=== PATIENT | female | born 1965 | race Caucasian/White ===

== ENCOUNTER 2018-02-11 11:47 | Outpatient (REF) | payer MEDICAID, SELFPAY ==
[2018-02-11 21:36] LABS: ALT 34 U/L (12-78); Anion Gap 9.9 mmol/L (3-11); BUN 14 mg/dL (7-18); CO2 31.1 mmol/L (21.0-32.0); CREATININE 0.77 mg/dL (0.55-1.02); Chloride 102 mmol/L (98-107); Cholesterol 127 mg/dL (50-200); Glucose 89 mg/dL (70-100); HDL Cholesterol 39 mg/dL (40-60); LDL CHOLESTEROL 78 mg/dL (<100); Potassium 3.9 mmol/L (3.5-5.1); Sodium 143 mmol/L (136-145); Triglyceride 81 mg/dL (30-150)
[2018-02-11 21:47] LABS: Hemoglobin A1C 6.1 % (4.5-6.2)
== END 2018-02-11 12:07 ==
LOC: NCHCN 11:47
PROVIDERS: PCP Family Medicine; Visit Provider Family Medicine
DX: I10 Essential (primary) hypertension (principal); R73.02 Impaired glucose tolerance (oral); E78.5 Hyperlipidemia, unspecified
CPT/HCPCS: 80048; 80061; 83721; 83036; 84460

== ENCOUNTER 2018-08-04 19:39 | Outpatient (REF) | payer MEDICAID, SELFPAY ==
[2018-08-04 22:10] LABS: TSH (W/Ref FT4) 2.27 uIU/mL (0.358-3.74)
[2018-08-04 22:17] LABS: Hemoglobin A1C 6.4 % (4.5-6.2)
== END 2018-08-04 19:59 ==
LOC: NCHCN 19:39
PROVIDERS: PCP Family Medicine; Visit Provider Family Medicine
DX: R73.02 Impaired glucose tolerance (oral) (principal); N64.52 Nipple discharge
CPT/HCPCS: 83036; 84146; 84443

== ENCOUNTER 2019-03-04 21:09 | Outpatient (REF) | payer MEDICAID, SELFPAY ==
[2019-03-04 21:43] LABS: Anion Gap 8.9 mmol/L (3-11); BUN 9 mg/dL (7-18); CO2 30.1 mmol/L (21.0-32.0); Calcium 9.5 mg/dL (8.5-10.1); Chloride 102 mmol/L (98-107); Glucose 93 mg/dL (70-100); Potassium 3.9 mmol/L (3.5-5.1); Sodium 141 mmol/L (136-145)
[2019-03-04 21:48] LABS: Hemoglobin A1C 5.8 % (4.5-6.2)
== END 2019-03-04 21:29 ==
LOC: NCHCN 21:09
PROVIDERS: PCP Family Medicine; Visit Provider Family Medicine
DX: I10 Essential (primary) hypertension (principal); R73.09 Other abnormal glucose; Z83.3 Family history of diabetes mellitus
CPT/HCPCS: 80048; 83036

== ENCOUNTER 2020-03-14 15:07 | Outpatient (REF) | payer MEDICAID, SELFPAY ==
--- NOTE | 2020-03-14 12:00 | PAPFT_PTH ---
PATIENT: Zahra Yu LOC: [facility] U#:[id number] AGE/SX: 55/F ROOM: RE03/14/[address]: Jana Fontenot : 1965 BED: DIS: 03/14/2020 SPEC #: [id number] RECD: 03/15/20 12:33 STATUS: MELISSA REQ #: [id number] LEE: 03/14/20 12:[address]: Jana Fontenot DEPT: [facility] Cytology RECD BY: Verito Anne Tissues: 1 - CX/ENDOCX FOR PAP SMEARS Procedures: PAP THIN PREP/UVM Screening HPV DNA PROBE Comments: [id number] ([place])
== END 2020-03-14 15:27 ==
LOC: NCHCN 15:07
PROVIDERS: PCP Family Medicine; Visit Provider Family Medicine
DX: Z00.00 Encounter for general adult medical examination without abnormal findings (principal); Z12.4 Encounter for screening for malignant neoplasm of cervix
CPT/HCPCS: 88142; 87624

== ENCOUNTER 2020-03-14 16:13 | Outpatient (REF) | payer MEDICAID, SELFPAY ==
[2020-03-14 22:59] LABS: ALT 52 U/L (14-59); AST 39 U/L (15-37); Albumin 4.5 g/dL (3.4-5.0); Alkaline Phosphatase 70 U/L (46-116); Anion Gap 8.8 mmol/L (3-11); BUN 16 mg/dL (7-18); Bilirubin, Total 0.3 mg/dL (0.2-1.0); CO2 30.2 mmol/L (21.0-32.0); CREATININE 0.89 mg/dL (0.55-1.02); Calcium 9.4 mg/dL (8.5-10.1); Calculated LDL 80 mg/dL (<100); Chloride 102 mmol/L (98-107); Cholesterol 151 mg/dL (<200); Glucose 85 mg/dL (74-106); HDL Cholesterol 35 mg/dL (40-60); Potassium 3.5 mmol/L (3.5-5.1); Sodium 141 mmol/L (136-145); TSH 1.28 uIU/mL (0.36-3.74); Total Protein 7.9 g/dL (6.4-8.2); Triglyceride 183 mg/dL (<150)
== END 2020-03-14 16:33 ==
LOC: NCHCN 16:13
PROVIDERS: PCP Family Medicine; Visit Provider Family Medicine
DX: R73.03 Prediabetes (principal); Z00.00 Encounter for general adult medical examination without abnormal findings; E78.5 Hyperlipidemia, unspecified
CPT/HCPCS: 80053; 80061; 84443

== ENCOUNTER 2021-01-04 16:31 | Outpatient (REF) | payer MEDICAID, SELFPAY ==
[2021-01-04 22:22] LABS: COMMENT (LAB VIEW ONLY) 12.72 mg/dL; Microalb ug/mg Crea 31.4 ug/mg Cr
== END 2021-01-04 16:32 | disposition home or self-care (01) ==
LOC: NCHCN 16:31
PROVIDERS: PCP Family Medicine; Visit Provider Family Medicine
DX: Z83.3 Family history of diabetes mellitus (principal)
CPT/HCPCS: 82043; 82570

== ENCOUNTER 2021-10-08 12:21 | Outpatient (REF) | payer MEDICAID, SELFPAY ==
--- NOTE | 2021-10-08 11:45 | ENDOMET_PTH ---
PATIENT: Zahra Yu LOC: [facility] U#:[id number] AGE/SX: 56/F ROOM: RE10/08/[address]: Jana Fontenot : 1965 BED: DIS: 10/08/2021 SPEC #: [id number] RECD: 10/08/21 17:02 STATUS: MELISSA REArpit #: [id number] LEE: 10/08/21 11:[address]: Jana Fontenot DEPT: Surgical Specimen RECD BY: Verito Anne Tissues: 1 - ENDOMETRIUM BX/AMIRAHETTE Procedures: GROSS AND MICRO LEVEL 4 Comments: [id number]
--- OUTSIDE RECORDS SUMMARY | 2021-10-08 12:25 | XMS_ITS ---
:1965 Author Care Team Providers Name Role Phone DR. KINGSTON SARAH Referring Provider [phone] Allergies Code Code System Name Reaction Severity Status Onset NKDA ? Medications Name Status Start Date Stop Date ? ? atorvastatin Completed ? 01/11/2019 atorvastatin 20 mg tablet Active ? Not av ailable cetirizine Completed ? 01/11/2019 cetirizine 10 mg tablet Active ? Not avai lable cyclobenzaprine Completed ? 01/11/2019 Diovan Active ? Not available Effexor XR Active ? Not available metformin ER 500 mg tablet,extended release 24 hr Active ? Not available [place] 3-6-9 Active ? Not available valsartan 160 mg-hydrochlorothiazide 25 mg tablet Active ? Not available venlafaxine ER 37.5 mg capsule,extended release 24 hr Completed ? 01/11/2019 venlafaxine ER 75 mg capsule,extended release 24 hr Active ? Not available vitamin E Active ? Not available zolpidem 5 mg tablet Active ? Not availab le Problems Name Status Onset Date Source ? Discharge from Nipple Active 09/29/2018 ? Abnormal Findings on Diagnostic Imaging of Breast Active 09/29/2018 ? Procedures Date Name Performed by ? 08/26/2018 Stereotactically Guided Core Needle Biop sy of Breast Information not available Notes: BREAST, RIGHT, UPPE R OUTER QUADRANT 12 CM FROM NIPPLE, STEREOTACTIC VACUUMASSISTED LARGE CORE BIOPSY:- Benign breast tissue with fibrocystic changes, including columnar cell change,columnar cell hyperp lasia, sclerosing adenosis, and dense interlobular fibrosis.- Microcalcifications identified in columnar cell change and benign ductules ? Ligation of Fallopian Tube Information n ot available Results Lab Results None recorded. Past Encounters None recorded. Social History Tobacco Smoking Status Never Smoker Notes: pot in e vening Vaccine List None recorded. Plan of Care Reminders Provider Appointments None recorded. ? ? Lab None recorded. ? ? Referral None recorded. ? ? Procedures None recorded. ? ? Surgeries None recorded. ? ? Imaging None recorded. ? ? Vitals 01/11/2019 12:30PM FOLLOW UP Height 5 ft 1 in 09/29/2018 12:30PM NEW PT Height 5 ft 1 in
--- OUTSIDE RECORDS SUMMARY | 2021-10-08 12:25 | XMS_ITS | CCD ---
:1965 Author Care Team Providers Name Role Phone NGUYEN MOTLEY Attending Physician Unavailable NGUYEN MOTLEY Rounding (Secondary) Physician Unavailab le Vital Signs Unknown or Not Available. Allergies Allergy Code Allergy Type Reaction Status SEASONAL {Clinical monitoring 0 Allergy to substance SIN US Active unavailable} No Known Drug Allergies 0 No known drug allergies Active Procedures Unknown or Not Available. History of Immunizations Unknown or Not Available. Problems Unknown or Not Available. Results Unknown or Not Available. Active Medications Medication Code Dose Units Frequency Route Modification Start Date/Time Acetaminophen 802972 2 TABLET NEEDED ORAL 07/29/19 22 325MG Oral Tablet EVERY 6 HOURS 12:53 Prescription Detail TAKE 2 TABLET ORAL NEEDED EVERY 6 HOURS FOR Pain Atorvastatin Calcium 20MG 951316 20 MILLIGRAMS DAILY ORAL 07/28/2021 12:53 Oral Tablet Prescription Detail TAKE 20 MILLIGRAMS ORAL JEANNIE Y Augmentin 875MG-125MG 860823 1 TABLET EVERY 12 HOURS ORAL 07/28/2021 12:53 Oral Tablet Prescription Detail TAKE 1 TABLET ORAL EVERY 12 HOURS Ibuprofen 200MG Oral 496458 3 TABLET NEEDED EVERY 6 ORAL 07/28/2021 12:53 Tablet HOURS Prescription Detail TAKE 3 TABLET ORAL NEEDED EVERY 6 HOURS FOR Pain Jardiance 10MG Oral Tablet 0521257 20 MILLIGRAMS DAILY ORAL 07/28/2021 12:53 Prescription Detail TAKE 20 MILLIGRAMS ORAL JEANNIE Y Prempro 0.3MG-1.5MG Oral Tablet 0342802 1 EACH DAILY ORAL 07/28/2021 12:53 Prescription Detail TAKE 1 EACH ORAL DAILY Valsartan 160MG Oral 063232 160 MILLIGRAMS DAILY ORAL 07/28/2021 12:53 Tablet Prescription Detail TAKE 160 MILLIGRAMS ORAL YAHAIRA LY Venlafaxine HCl 150MG Oral 198729 150 MILLIGRAMS DAILY ORAL 07/28/2021 12:53 Tablet, Extended Release Prescription Detail TAKE 150 MILLIGRAMS ORAL YAHAIRA LY Medications Administered During Visit Unknown or Not Available. Encounters Encounter Diagnosis Diagnosis Code Start Date Encounter for follow-up examination after completed Z09 08/13/2021 treatment for conditions other than malignant neoplasm Social History Smoking Status Code Start Date End Date Never smoker [id number] Patient Decision Aids Unknown or Not Available. Discharge Instructions You were admitted to [facility] on 08/13/2021 11:40 with a principal diagnosis of Encntr for f/u exam aft trtmt for con d oth than malig neoplm You were discharged from [facility] on 08/13/2021 00:00 Should you have any questions prior to d ischarge, please contact a member of your healthcare team. If you have left the ho spital and have any questions, please contact your primary care physician. Chief Complaint and Reason For Visit Unknown or Not Available. Function Status Unknown or Not Available. Plan of Care Unknown or Not Available. Referral/Transition of Care Unknown or Not Available.
--- OUTSIDE RECORDS SUMMARY | 2021-10-08 12:25 | XMS_ITS | CCD ---
:1965 Author Care Team Providers Name Role Phone NGUYEN MOTLEY Attending Physician Unavailable RAQUEL FELIZ Er Physician 1 Unavailable MARIANO FORMAN (Secondary) Physician UnavailKELLEN Tan Registered Nurse Unavailable Vital Signs Vital Sign Value Unit Date/Time Recent/Initial? BMI (Body Mass Index) 32.12 kg/m^2 07/26/2021 10:57 In itial VS Weight Measured 170 lbs 07/26/2021 10:57 Initial VS Height 61 in 07/26/2021 10:57 Initial VS BSA (Body Surface Area) 1.82 m^2 07/26/2021 10:57 Initial VS BP Systolic 158 mmHg 07/26/2021 10:57 Initial VS BP Diastolic 71 mmHg 07/26/2021 10:57 Initial VS Respiratory Rate 17 bpm 07/26/2021 10:57 Initial VS Heart Rate 89 bpm 07/26/2021 10:57 Initial VS O2 % BldC Oximetry 97 % 07/26/2021 10:57 Initi al VS Body Temperature 36.9 degrees 07/26/2021 10:57 Initial VS BP Systolic 140 mmHg 07/28/2021 12:03 Most Recent VS BP Diastolic 65 mmHg 07/28/2021 12:03 Most Recent VS Respiratory Rate 18 bpm 07/28/2021 12:03 Most Re cent VS Heart Rate 73 bpm 07/28/2021 12:03 Most Recent VS O2 % BldC Oximetry 97 % 07/28/2021 12:03 Most Recent VS Body Temperature 36.4 degrees 07/28/2021 12:03 Most Re cent VS Allergies Allergy Code Allergy Type Reaction Status SEASONAL {Clinical monitoring 0 Allergy to substance SIN US Active unavailable} No Known Drug Allergies 0 No known drug allergies Active Procedures Procedure Code Procedure Type Date Laparoscopy, Surgical; Appendectomy 82783 CPT 07/26/2021 Anesthesia, Intraperitoneal Proc, Lower Abdomen, 90586 CPT 07/26/2021 w/Laparoscopy; NOS History of Immunizations Unknown or Not Available. Problems Unknown or Not Available. Results BASIC METABOLIC PANEL (BMP) - Collect Da te/Time: 07/28/2021 06:25 Test Name Code Test Result Test Units Test Ref Range GLUCOSE 2345-7 110 mg/dL L=70 H=116 BUN 3094-0 7 mg/dL L=6 H=25 CREATININE 2160-0 0.71 mg/dL L=0.51 H=0.95 SODIUM SERUM 2951-2 143 mmol/L L=136 H=145 POTASSIUM SERUM 2823-3 3.6 mmol/L L=3.4 H=5.2 CHLORIDE SERUM 2075-0 109 mmol/L L=96 H=110 CARBON DIOXIDE (CO2) 2028-9 26 mmol/L L=22 H= 34 ANION GAP 32490-8 7.6 mmol/L CALCIUM SERUM 11633-9 7.9 mg/dL L=8.2 H=10.2 AGE 56 years eGFR (non-Afr.Amer.) 79585-7 85 mL/min eGFR (Afr-[place]) 66907-1 103 mL/min COMPREHENSIVE METABOLIC PANEL (CMP) - Co llect Date/Time: 07/26/2021 12:13 Test Name Code Test Result Test Units Test Ref Range GLUCOSE 2345-7 114 mg/dL L=70 H=116 BUN 3094-0 9 mg/dL L=6 H=25 CREATININE 2160-0 0.83 mg/dL L=0.51 H=0.95 SODIUM SERUM 2951-2 138 mmol/L L=136 H=145 POTASSIUM SERUM 2823-3 3.4 mmol/L L=3.4 H=5.2 CHLORIDE SERUM 2075-0 100 mmol/L L=96 H=110 CARBON DIOXIDE (CO2) 8-9 31 mmol/L L=22 H= 34 ANION GAP 19978-1 6.9 mmol/L CALCIUM SERUM 98140-8 9.6 mg/dL L=8.2 H=10.2 BILIRUBIN TOTAL 1975-2 0.9 mg/dL L=0.0 H=1.3 ALK. PHOS. 6768-6 65 U/L L=46 H=116 SGOT (AST) 1920-8 23 U/L L=15 H=37 SGPT (ALT) 1742-6 29 U/L L=12 H=78 TOTAL PROTEIN 2885-2 7.9 gm/dL L=6.0 H=8.0 ALBUMIN 1751-7 3.9 gm/dL L=3.4 H=5.0 AGE 56 years eGFR (non-Afr.Amer.) 83953-3 71 mL/min eGFR (Afr-[place]) 75723-9 86 mL/min GLUCOSE FINGER/HEEL CAPILLARY - Collect Date/Time: 07/28/2021 12:00 Test Name Code Test Result Test Units Test Ref Range GLUCOSE CAP 119 mg/dL L=70 H=116 GLUCOSE FINGER/HEEL CAPILLARY - Collect Date/Time: 07/28/2021 08:12 Test Name Code Test Result Test Units Test Ref Range GLUCOSE CAP 104 mg/dL L=70 H=116 GLUCOSE FINGER/HEEL CAPILLARY - Collect Date/Time: 07/27/2021 20:33 Test Name Code Test Result Test Units Test Ref Range GLUCOSE CAP 133 mg/dL L=70 H=116 GLUCOSE FINGER/HEEL CAPILLARY - Collect Date/Time: 07/27/2021 15:37 Test Name Code Test Result Test Units Test Ref Range GLUCOSE CAP 95 mg/dL L=70 H=116 GLUCOSE FINGER/HEEL CAPILLARY - Collect Date/Time: 07/27/2021 12:04 Test Name Code Test Result Test Units Test Ref Range GLUCOSE CAP 132 mg/dL L=70 H=116 GLUCOSE FINGER/HEEL CAPILLARY - Collect Date/Time: 07/27/2021 07:54 Test Name Code Test Result Test Units Test Ref Range GLUCOSE CAP 157 mg/dL L=70 H=116 GLUCOSE FINGER/HEEL CAPILLARY - Collect Date/Time: 07/26/2021 20:30 Test Name Code Test Result Test Units Test Ref Range GLUCOSE CAP 174 mg/dL L=70 H=116 GLUCOSE FINGER/HEEL CAPILLARY - Collect Date/Time: 07/26/2021 17:29 Test Name Code Test Result Test Units Test Ref Range GLUCOSE CAP 134 mg/dL L=70 H=116 LIPASE* - Collect Date/Time: 07/26/2021 12:13 Test Name Code Test Result Test Units Test Ref Range LIPASE 103 U/L L=73 H=393 CBC W/ DIFFERENTIAL* - Collect Date/Time : 07/28/2021 06:25 Test Name Code Test Result Test Units Test Ref Range WBC 6690-2 6.03 th/cmm L=5.00 H=10.00 NEUT % 63.9 % L=40.0 H=80.0 LYMPH % 27.2 % L=10.0 H=50.0 MONO % 61114-6 6.3 % L=2.0 H=12.0 EOS % 2.0 % L=0.0 H=8.0 BASO % 0.3 % L=0.0 H=3.0 IG % 2514-8 0.3 % L=0.0 H=1.1 NRBC % 73900-0 0.0 % L=0.0 H=0.0 NEUT abs count 751-8 3.9 th/cmm L=1.6 H=8.4 LYMPH abs count 731-0 1.6 th/cmm L=1.5 H=4.0 MONO abs count 742-7 0.4 th/cmm L=0.2 H=1.0 EOS abs count 711-2 0.1 th/cmm L=0.0 H=0.5 BASO abs count 704-7 0.0 th/cmm L=0.0 H=0.2 IG abs count 19602-7 0.0 th/cmm L=0.0 H=0.1 NRBC abs count 87316-1 0.0 mil/cmm L=0.0 H=0.0 RBC 789-8 4.10 mil/cmm L=3.90 H=5.40 HEMOGLOBIN 718-7 12.2 gm/dL L=12.0 H=16.0 HEMATOCRIT 4544-3 37 % L=37 H=47 MCV 787-2 91 fL L=82 H=92 MCH 785-6 29.8 pg L=27.0 H=31.0 MCHC 786-4 32.9 % L=32.0 H=36.0 RDW-SD 788-0 46.8 fL L=39.0 H=49.0 PLATELET COUNT 777-3 189 th/cmm L=150 H=450 CBC W/ DIFFERENTIAL* - Collect Date/Time : 07/27/2021 06:30 Test Name Code Test Result Test Units Test Ref Range WBC 6690-2 12.27 th/cmm L=5.00 H=10.00 NEUT % 85.5 % L=40.0 H=80.0 LYMPH % 8.3 % L=10.0 H=50.0 MONO % 42684-2 5.4 % L=2.0 H=12.0 EOS % 0.0 % L=0.0 H=8.0 BASO % 0.2 % L=0.0 H=3.0 IG % 2514-8 0.6 % L=0.0 H=1.1 NRBC % 62525-2 0.0 % L=0.0 H=0.0 NEUT abs count 751-8 10.5 th/cmm L=1.6 H=8.4 LYMPH abs count 731-0 1.0 th/cmm L=1.5 H=4.0 MONO abs count 742-7 0.7 th/cmm L=0.2 H=1.0 EOS abs count 711-2 0.0 th/cmm L=0.0 H=0.5 BASO abs count 704-7 0.0 th/cmm L=0.0 H=0.2 IG abs count 73158-5 0.1 th/cmm L=0.0 H=0.1 NRBC abs count 71594-1 0.0 mil/cmm L=0.0 H=0.0 RBC 789-8 4.30 mil/cmm L=3.90 H=5.40 HEMOGLOBIN 718-7 12.9 gm/dL L=12.0 H=16.0 HEMATOCRIT 4544-3 38 % L=37 H=47 MCV 787-2 89 fL L=82 H=92 MCH 785-6 30.0 pg L=27.0 H=31.0 MCHC 786-4 33.8 % L=32.0 H=36.0 RDW-SD 788-0 44.3 fL L=39.0 H=49.0 PLATELET COUNT 777-3 227 th/cmm L=150 H=450 CBC W/ DIFFERENTIAL* - Collect Date/Time : 07/26/2021 12:13 Test Name Code Test Result Test Units Test Ref Range WBC 6690-2 11.47 th/cmm L=5.00 H=10.00 NEUT % 79.6 % L=40.0 H=80.0 LYMPH % 12.6 % L=10.0 H=50.0 MONO % 70729-6 6.6 % L=2.0 H=12.0 EOS % 0.6 % L=0.0 H=8.0 BASO % 0.3 % L=0.0 H=3.0 IG % 2514-8 0.3 % L=0.0 H=1.1 NRBC % 47819-1 0.0 % L=0.0 H=0.0 NEUT abs count 751-8 9.1 th/cmm L=1.6 H=8.4 LYMPH abs count 731-0 1.4 th/cmm L=1.5 H=4.0 MONO abs count 742-7 0.8 th/cmm L=0.2 H=1.0 EOS abs count 711-2 0.1 th/cmm L=0.0 H=0.5 BASO abs count 704-7 0.0 th/cmm L=0.0 H=0.2 IG abs count 97219-2 0.0 th/cmm L=0.0 H=0.1 NRBC abs count 47314-4 0.0 mil/cmm L=0.0 H=0.0 RBC 789-8 5.01 mil/cmm L=3.90 H=5.40 HEMOGLOBIN 718-7 15.2 gm/dL L=12.0 H=16.0 HEMATOCRIT 4544-3 44 % L=37 H=47 MCV 787-2 88 fL L=82 H=92 MCH 785-6 30.3 pg L=27.0 H=31.0 MCHC 786-4 34.4 % L=32.0 H=36.0 RDW-SD 788-0 44.1 fL L=39.0 H=49.0 PLATELET COUNT 777-3 237 th/cmm L=150 H=450 JOSE COVID FLU RSV GENEXPERT - Collect Date/Time: 07/26/2021 14:03 Test Name Code Test Result Test Units Test Ref Range COVID 32084-9 NEGATIVE N/A Normal: Negativ e INFLUENZA A DNA 69303-4 NEGATIVE N/A Normal: Nega tive INFLUENZA B DNA 23048-4 NEGATIVE N/A Normal: Nega tive RSV DNA 02079-1 NEGATIVE N/A Normal: Negativ e TEST (URINE) QUALITATIVE - Col lect Date/Time: 07/26/2021 12:13 Test Name Code Test Result Test Units Test Ref Range TEST 2106-3 NEGATIVE N/A URINALYSIS WITH REFLEX CULT IF POSITIVE* - Collect Date/Time: 07/26/2021 12:13 Test Name Code Test Result Test Units Test Ref Range COLLECTION MODE: CLEAN CATCH N/A Color 5778-6 YELLOW N/A yellow Appearance 5767-9 CLEAR N/A clear Glucose urine 36396-0 >=1000 N/A negative mg/dl Bilirubin 5770-3 NEGATIVE N/A negative Ketones 2514-8 NEGATIVE N/A negative mg/dl Spec gravity 5811-5 1.010 N/A 1.003 - 1.030 pH urine 2756-5 7.5 N/A 5.0 - 7.0 Protein 35097-4 NEGATIVE N/A negative mg/dl Urobilinogen 24862-2 0.2 N/A <or= 1 EU/dl Nitrite. 5802-4 NEGATIVE N/A negative Blood 5794-3 NEGATIVE N/A negative Leukocytes. NEGATIVE N/A negative MICROSCOPIC NOT INDICAT N/A Active Medications Medication Code Dose Units Frequency Route Modification Start Date/Time Acetaminophen 077770 2 TABLET NEEDED ORAL 07/29/19 22 325MG Oral Tablet EVERY 6 HOURS 12:53 Prescription Detail TAKE 2 TABLET ORAL NEEDED EVERY 6 HOURS FOR Pain Atorvastatin Calcium 20MG 256795 20 MILLIGRAMS DAILY ORAL 07/28/2021 12:53 Oral Tablet Prescription Detail TAKE 20 MILLIGRAMS ORAL JEANNIE Y Augmentin 875MG-125MG 291764 1 TABLET EVERY 12 HOURS ORAL 07/28/2021 12:53 Oral Tablet Prescription Detail TAKE 1 TABLET ORAL EVERY 12 HOURS Ibuprofen 200MG Oral 135068 3 TABLET NEEDED EVERY 6 ORAL 07/28/2021 12:53 Tablet HOURS Prescription Detail TAKE 3 TABLET ORAL NEEDED EVERY 6 HOURS FOR Pain Jardiance 10MG Oral Tablet 3505023 20 MILLIGRAMS DAILY ORAL 07/28/2021 12:53 Prescription Detail TAKE 20 MILLIGRAMS ORAL JEANNIE Y Prempro 0.3MG-1.5MG Oral Tablet 6019421 1 EACH DAILY ORAL 07/28/2021 12:53 Prescription Detail TAKE 1 EACH ORAL DAILY Valsartan 160MG Oral 717076 160 MILLIGRAMS DAILY ORAL 07/28/2021 12:53 Tablet Prescription Detail TAKE 160 MILLIGRAMS ORAL YAHAIRA LY Venlafaxine HCl 150MG Oral 294512 150 MILLIGRAMS DAILY ORAL 07/28/2021 12:53 Tablet, Extended Release Prescription Detail TAKE 150 MILLIGRAMS ORAL YAHAIRA LY Medications Administered During Visit Medication Dose Units Frequency Route Date/Time of L ast Dose CefTRIAXone IVPB: 1GM/50ML 1 GM X1 IVPB 07/26/2021 14:07 MetroNIDAZOLE IVPB PREMIX: 500 MG X1 IVPB 07/26/2021 14:41 500MG/100ML LACTATED RINGERS 1000ML 1000 ML X1 IV 0 07/26/2021 15:41 MIDAZOLAM INJ SDV: 2MG/2ML 2 MG X1 IVP 07/26/2021 15:42 CefTRIAXone IVPB: 1GM/50ML 1 GM Q24H IVPB 07/28/2021 13:02 MetroNIDAZOLE IVPB PREMIX: 500 MG Q6H IVPB 07/28/2021 08:25 500MG/100ML INSULIN REGULAR INJ MDV: PRN SUBQ 07/28/2021 13:01 1000UNIT/10ML ACETAMINOPHEN INJ SDV: 1000 MG Q6H IVPB 05:52 1000MG/100ML KETOROLAC INJ SDV: 30MG/1ML 15 MG X1 IVP 07/27/2021 10:14 KETOROLAC INJ SDV: 30MG/1ML 15 MG Q6H IVP 07/28/2021 08:25 POTASSIUM CHL IN D5%-1/2NS: 1000 ML CONT IV 07/27/2021 12:44 20mEq/1000ML PANTOPRAZOLE INJ SDV: 40MG 40 MG X1 IVP 07/27/2021 14:43 PANTOPRAZOLE INJ SDV: 40MG 40 MG DAILY IVP 07/28/2021 08:25 ACETAMINOPHEN TABLET: 325MG 650 MG X1 PO 07/28/2021 13:46 Encounters Encounter Diagnosis Diagnosis Code Start Date Acute appendicitis with perforation and localized K3532 07/26/2021 peritonitis, without abscess Social History Smoking Status Code Start Date End Date Never smoker [id number] Patient Decision Aids Patient Decision Aid APPENDICECTOMY Patient Portal Access Discharge Instructions You were admitted to [facility] on 07/26/2021 15:27 with a principal diagnosis of Acute appendicitis with perforation a nd localized peritonitis, without abscess You had the following procedures done: Laparoscopy, Surgical; Appendectomy Anesthesia, Intraperitoneal Proc, Lower Abdomen, w/Laparoscopy; NOS You had the following tests done: GLUCO SE FINGER/HEEL CAPILLARY GLUCOSE FINGER/HEEL CAPILLARY BASIC METABOLIC PANEL (BMP) CB C W/ DIFFERENTIAL* GLUCOSE FINGER/HEEL CAPILLARY GLUCOSE FINGER/HEEL CAPILLARY GLUCOSE FINGER/HEEL CAPILLARY GLUCOSE FINGER/HEEL CAPILLARY CBC W/ DIFFERENTIA L* GLUCOSE FINGER/HEEL CAPILLARY GLUCOSE FINGER/HEEL CAPILLARY [facility] COVID FLU R SV GENEXPERT CBC W/ DIFFERENTIAL* COMPREHENSIVE METABOLIC PANEL (CMP) LIPA SE* TEST (URINE) QUALITATIVE URINALYSIS WITH REFLEX CULT IF POSITIVE* You were discharged from [facility] on 07/28/2021 14:55 Should you have any questions prior to d ischarge, please contact a member of your healthcare team. If you have left the ho spital and have any questions, please contact your primary care physician. Chief Complaint and Reason For Visit Chief Complaint Date of Onset ACCUTE APPENDICITIS S/P LAP APPY 07/26/2021 Function Status Unknown or Not Available. Plan of Care Unknown or Not Available. Referral/Transition of Care Unknown or Not Available.
--- OUTSIDE RECORDS SUMMARY | 2021-10-08 12:26 | XMS_ITS ---
:1965 Author Care Team Providers Name Role Phone [facility] MED[facility] RECORDS Primary Care Provider [phone] KINGSTON SARAH MD Primary Care Provider [phone] Allergies Code Code System Name Reaction Severity Status Onset NKDA ? Medications Name Status Start Date Stop Date ? ? amitriptyline 10 mg tablet Completed ? 08/10 Take 1 tablet every day by oral route at bedtime for 90 days. atorvastatin 20 mg tablet Active ? Not av ailable Take 1 tablet every day by oral route at bedtime. cetirizine 10 mg tablet Active ? Not avai lable Take 1 tablet every day by oral route. cyclobenzaprine 10 mg tablet Active ? Not available Take 1 tablet 3 times a day by oral route. Diovan HCT 160 mg-25 mg tablet Active ? N ot available Take 0.5 tablets twice a day by oral route. Effexor XR 37.5 mg capsule,extended release Active ? Not available Take 1 capsule every day by oral route. Effexor XR 75 mg capsule,extended release Active ? Not available Take 1 capsule every day by oral route. krill oil Active ? Not available 1 cap daily metformin ER 500 mg 24 hr tablet,extended release Active ? Not available Take 1 tablet twice a day by oral route. vitamin E (dl, acetate) 45 mg (100 unit) capsule Active ? Not available Take 1 capsule every day by oral route. zolpidem 5 mg tablet Completed ? 04/05/2019 take 1-2 PO night of sleep study if needed. Problems Name Status Onset Date Source ? Adenomatous Polyp of Colon Active 09/24/2018 ? Hyperlipidemia Active 09/24/2018 ? Metabolic Syndrome X Active 09/24/2018 ? Obesity Active 09/24/2018 ? Depressive Disorder Active 09/24/2018 ? Obstructive Sleep Apnea Syndrome Active 09/24/2018 ? Hypertensive Disorder Active 09/24/2018 ? Allergic Rhinitis Active 09/24/2018 ? Gastroesophageal Reflux Disease Active 09/24/2018 ? Pain of Breast Active 09/24/2018 ? Discharge from Nipple Active 09/24/2018 ? Adhesive Capsulitis of Shoulder Active 09/24/2018 ? Fibromyalgia Active 09/24/2018 ? Vasovagal Syncope Active 09/24/2018 ? Atypical Chest Pain Active 09/24/2018 ? Impaired Glucose Tolerance Active 09/24/2018 ? Family History of Atherosclerosis Active 09/24/2018 ? Family History of Diabetes Mellitus Active 09/24/2018 ? Excision of Bartholin's Cyst Active 09/24/2018 ? Procedures None recorded. Results Lab Results None recorded. Past Encounters 10/02/2020 Obstructive Sleep Apnea Syndrome Pilar Rosario PEDIATRIC HOSPITALIST: [address] [place] [phone], Ph. Social History Tobacco Smoking Status Never Smoker Vaccine List Vaccine Type COVID-19, mRNA, LNP-S, PF, 100 mcg/0.5 m L dose (Moderna) 05/30/2020?100 mcg 06/29/2020?0.5 mL Plan of Care Reminders Provider Appointments None recorded. ? ? Lab None recorded. ? ? Referral None recorded. ? ? Procedures None recorded. ? ? Surgeries None recorded. ? ? Imaging None recorded. ? ? Vitals 10/02/2020 01:30PM Office 30 Height Weight BMI Blood Pressure 154.94 cm 78.47 kg 32.7 kg/m2 143/85 mm[Hg] 08/11/2019 11:30AM Office 30 Height Weight BMI 154.94 cm 77.11 kg 32.1 kg/m2 04/05/2019 01:30PM Office 30 Height Weight BMI Blood Pressure 154.94 cm 76.02 kg 31.7 kg/m2 126/66 mm[Hg] 01/17/2019 03:15PM Office 30 Height Weight BMI Blood Pressure 154.94 cm 74.89 kg 31.2 kg/m2 122/68 mm[Hg] 09/27/2018 02:30PM New Patient 45 Height Weight BMI Blood Pressure 154.94 cm 78.74 kg 32.8 kg/m2 120/78 mm[Hg]
== END 2021-10-08 12:22 | disposition home or self-care (01) ==
LOC: NCHCN 12:21
PROVIDERS: PCP Family Medicine; Visit Provider Family Medicine
DX: N95.0 Postmenopausal bleeding (principal); N85.8 Other specified noninflammatory disorders of uterus
CPT/HCPCS: 88305

== ENCOUNTER 2021-12-25 14:28 | Outpatient (REF) | payer MEDICAID, SELFPAY ==
[2021-12-26 17:50] LABS: Albumin ug/mg Crea 9 (<30); Albumin, Ur 0.7 mg/dL (See Note); Creatinine, Ur 78.5 mg/dL (See Note)
== END 2021-12-25 14:29 | disposition home or self-care (01) ==
LOC: NCHCN 14:28
PROVIDERS: PCP Family Medicine; Visit Provider Family Medicine
DX: E11.9 Type 2 diabetes mellitus without complications (principal)
CPT/HCPCS: 82043; 82570

== ENCOUNTER 2022-09-16 13:41 | Outpatient (REF) | payer MEDICAID, SELFPAY ==
[2022-09-16 14:53] LABS: Anion Gap 8.1 mmol/L (3-11); BUN 17 mg/dL (7-18); CO2 30.9 mmol/L (21.0-32.0); CREATININE 0.9 mg/dL (0.55-1.02); Calcium 9.8 mg/dL (8.5-10.1); Chloride 99 mmol/L (98-107); Estimated GFR 75.03 (mL/min/1.73m2); Glucose 262 mg/dL (74-106); Potassium 3.6 mmol/L (3.5-5.1); Sodium 138 mmol/L (136-145)
[2022-09-16 15:00] LABS: Hemoglobin A1C 7.1 % (<5.7)
== END 2022-09-16 13:42 | disposition home or self-care (01) ==
LOC: NCHCN 13:41
PROVIDERS: PCP Family Medicine; Visit Provider Family Medicine
DX: E11.8 Type 2 diabetes mellitus with unspecified complications (principal); I10 Essential (primary) hypertension
CPT/HCPCS: 80048; 83036

== ENCOUNTER 2022-11-25 12:57 | Outpatient (REF) | payer MEDICAID, SELFPAY ==
[2022-11-25 15:00] LABS: HCT 48.3 % (36.0-46.0); HGB 16.5 g/dL (11.2-15.7); MCH 29.8 pg (27.0-33.0); MCHC 34.2 % (32.0-36.0); MCV 87 fL (80-95); Platelet Count 287 10^3/uL (130-400); RBC 5.53 10^6/uL (3.93-5.22); RDW 12.5 % (11.7-14.6); RDW-SD 40.1 fL
[2022-11-25 15:15] LABS: ALT 55 U/L (14-59); AST 37 U/L (15-37)
== END 2022-11-25 12:58 | disposition home or self-care (01) ==
LOC: NCHCN 12:57
PROVIDERS: PCP Family Medicine; Visit Provider Family Medicine
DX: R07.89 Other chest pain (principal); D75.1 Secondary polycythemia; N95.1 Menopausal and female climacteric states; R94.5 Abnormal results of liver function studies
CPT/HCPCS: 85027; 84450; 84460

== ENCOUNTER 2023-02-19 14:22 | Outpatient (REF) | payer MEDICAID, SELFPAY ==
[2023-02-19 22:00] LABS: COMMENT (LAB VIEW ONLY) 35.75 mg/dL; Microalb ug/mg Crea 7.8 ug/mg Cr
== END 2023-02-19 14:23 | disposition home or self-care (01) ==
LOC: NCHCN 14:22
PROVIDERS: PCP Family Medicine; Visit Provider Family Medicine
DX: E11.8 Type 2 diabetes mellitus with unspecified complications (principal)
CPT/HCPCS: 82043; 82570

== ENCOUNTER 2023-10-13 11:25 | Outpatient (REF) | payer MEDICAID, SELFPAY ==
[2023-10-13 16:04] LABS: HCT 44.1 % (36.0-46.0); HGB 14.7 g/dL (11.2-15.7); MCH 30.2 pg (27.0-33.0); MCHC 33.3 % (32.0-36.0); MCV 91 fL (80-95); Platelet Count 243 10^3/uL (130-400); RBC 4.87 10^6/uL (3.93-5.22); RDW 12.8 % (11.7-14.6); RDW-SD 41.8 fL; WBC 5.13 10^3/uL (4.4-10.8)
[2023-10-13 16:26] LABS: ALT 33 U/L (14-59); AST 24 U/L (15-37); Albumin 3.9 g/dL (3.4-5.0); Alkaline Phosphatase 64 U/L (46-116); Anion Gap 9.7 mmol/L (3-11); BUN 17 mg/dL (7-18); Bilirubin, Total 0.4 mg/dL (0.2-1.0); CO2 29.3 mmol/L (21.0-32.0); CREATININE 0.9 mg/dL (0.55-1.02); Calcium 8.9 mg/dL (8.5-10.1); Calculated LDL 49 mg/dL (<100); Chloride 103 mmol/L (98-107); Cholesterol 121 mg/dL (<200); Estimated GFR 74.57 (mL/min/1.73m2); Glucose 173 mg/dL (74-106); HDL Cholesterol 43 mg/dL (40-60); Potassium 4.2 mmol/L (3.5-5.1); Sodium 142 mmol/L (136-145); Total Protein 7.4 g/dL (6.4-8.2); Triglyceride 149 mg/dL (<150)
[2023-10-13 16:36] LABS: Hemoglobin A1C 5.7 % (<5.7)
[2023-10-13 16:47] LABS: C-Reactive Protein < 0.50 mg/dL (<or=0.5)
== END 2023-10-13 11:26 | disposition home or self-care (01) ==
LOC: NCHCN 11:25
PROVIDERS: PCP Family Medicine; Visit Provider Family Medicine
DX: R53.83 Other fatigue (principal); R53.81 Other malaise; E11.9 Type 2 diabetes mellitus without complications; E78.5 Hyperlipidemia, unspecified
CPT/HCPCS: 80053; 80061; 85027; 83036; 84443; 86140

== ENCOUNTER 2024-07-01 15:27 | Outpatient (REF) | payer MEDICAID, SELFPAY ==
[2024-07-01 22:07] LABS: COMMENT (LAB VIEW ONLY) 35.68 mg/dL; Microalb ug/mg Crea 14.3 ug/mg Cr
== END 2024-07-01 15:28 | disposition home or self-care (01) ==
LOC: NCHCN 15:27
PROVIDERS: PCP Family Medicine; Visit Provider Family Medicine
DX: E11.9 Type 2 diabetes mellitus without complications (principal)
CPT/HCPCS: 82043; 82570

== ENCOUNTER 2024-10-07 06:31 | Day surgery (SDC) | payer MEDICAID, SELFPAY ==
--- NOTE | 2024-10-06 15:57 | W.PM.DSUDISC ---
Date of service: 10/07/24 Discharge Plan Disposition Patient Disposition: Home Condition: Good Discharge Details Reason For Visit: Screening colonoscopy Attending Provider: Anthony Chavez Primary Care Provider: Jana Fontenot Home Meds and New Rx's Prescriptions: Continued aspirin 81 mg tablet,chewable 81 mg PO DAILY atorvastatin 20 mg tablet 20 mg PO QHS cetirizine 10 mg tablet 10 mg PO DAILY PRN cyclobenzaprine 10 mg tablet 10 mg PO HS PRN Jardiance 25 mg tablet 25 mg PO DAILY melatonin 10 mg capsule 10 mg PO HS PRN calcium carbonate-vitamin D3 [Oyster Shell Calcium-Vit D3] 500 mg-5 mcg (200 unit) tablet 1 tab PO DAILY Ozempic 2 mg/dose (8 mg/3 mL) pen injector 2 mg subcut QWEEK sertraline 100 mg tablet 100 mg PO DAILY diphenhydramine HCl [NightTime Sleep Aid (diphen)] 25 mg capsule 25 mg PO QHS PRN valsartan-hydrochlorothiazide 320-25 mg tablet 1 tab PO DAILY vitamin E (dl, acetate) 45 mg (100 unit) capsule 45 mg PO DAILY Discontinued bisacodyl 5 mg tablet,delayed release (DR/EC) 5 mg PO ONCE Qty: 4 0RF Rx Instructions: Per Colonoscopy bowel prep instructions polyethylene glycol 3350 17 gram/dose powder 238 g PO ONCE Qty: 238 0RF Rx Instructions: For Colonoscopy bowel prep, as directed by office Discharge Instructions Instructions: Colon polyps Additional Instructions: Zahra, is very nice meeting you today, and I hope you feel well after the procedure. Things went very smoothly. I did find, and removed, 1 single polyp today. It was quite small, and certainly appears to be nothing to worry about by the naked eye. This will be sent off for testing since polyps do come in different types, we use that information to help guide the timing of future colonoscopies. Those results take about a week or 2 to get back, but once my office has had information, we will be in touch. If you need anything in the meantime, please do not hesitate to call or ask at any point. 1. If tolerated, consume a soft, low fiber diet for 1-2 days. 2[address] Do not drive, drink alcohol, operate machinery, make critical decisions, or do activities that require coordination or balance for 24 hours. 3. Because air was put into your colon during the procedure, expelling air from your rectum (passing gas or farting) is normal. 4. You may not have a bowel movement for 1-3 days because of the colonoscopy prep. This is normal. 5. Go directly to the emergency room if you notice any of the following: Develop chills (warm to touch), or if you have a thermometer and your temperature is above 101 Difficulty breathing or difficultly swallowing Persistent vomiting Severe abdominal pain, other than gas cramps Severe chest pain Black, tarry stools Any bleeding ? exceeding one tablespoon 6. Call your physician if the site where your intravenous was started becomes red, swollen, painful, and warm to touch. 7. Your physician has reviewed your pre-procedure medications. Please continue to take those medications as previously ordered. You will be given specific information/education regarding any changes to your medications before leaving. Stand Alone Forms: Anesthesia Discharge Inst., Colonoscopy Post Instructions, Jairo Perez (DSU) Activity:: Activity as Tolerated Diet:: As Tolerated Discharge Orders Discharge Orders: Discharge Order (Routine); Ordered 10/06/24 Ordered By: Anthony Chavez DS: Diagnosis Discharge Diagnosis (1) Encounter for screening colonoscopy: Status: Acute Asessment and Plan: Follow-up on polypectomy results
--- NOTE | 2024-10-06 16:05 | W.COLOREPORT ---
Date of service: 10/07/24 Time of Service: 08:10 Colonoscopy Report Date of procedure: 10/07/24 Pre-op diagnosis general: Screening colonoscopy Post-op diagnosis procedure note: other (Colon polyp) Procedure: colonoscopy with polypectomy Surgeon: Anthony Chavez Anesthesia Type: General:No Airway Estimated blood loss (mL): 5 Pathology: other (0.25 cm flat polyp at 15 cm) Complications: None Disposition: same day Indications: Zahra is a 59-year-old woman who needs a screening colonoscopy Prep: Miralax/Dulcolax Procedure Start Time: 07:37 Procedure End Time: 07:57 Retraction Time: 10 Findings: 0.25 cm flat polyp at 15 cm Procedure Description: After the induction of anesthesia, and with the patient in left lateral decubitus position, I began by performing an external anorectal exam.? Perineum and skin were normal, as was the anal verge.? There was no evidence of external hemorrhoids.? Next, I performed a digital rectal exam.? This was normal next, I advanced a colonoscope into the rectal vault.? I performed retroflexion.? This appeared normal.? Using irrigation, I then advanced the colonoscope beyond the rectal folds and into the sigmoid colon before advancing towards the cecum.? The quality of the prep was excellent.? The scope was noted to be in the cecum by identification of the ileocecal valve and appendiceal orifice.? I then began withdrawing the colonoscope using repeated irrigation as necessary for full evaluation of the colonic mucosa. ?Once the scope was withdrawn to the level of the rectum, great care was taken to examine portions of the rectal folds. Around 15 cm from the anal verge was 0.5 cm flat polyp. This was removed with cold forcep polypectomy with minimal bleeding.? The remainder of the rectum appeared normal. Finally, the scope was withdrawn and the patient was brought to the same-day surgery recovery unit as the anesthetic wore off. ?The findings and instructions were shared with the patient prior to discharge. Dewitt Bowel Prep Dewitt Bowel Prep Right Colon: 3 Left Colon: 3 Transverse Colon: 3 Total Score: 9
[2024-10-07 06:40] VITALS: BP 172/78; PULSE 74; RESP 20; TEMP 36.4; O2SAT 100
[2024-10-07] MEDS: Lactated Ringers 1,000 ML 80 ML IV (07:03)
--- NOTE | 2024-10-07 07:19 | W.ANESPRE ---
General Info Date of Service Date Performed: 10/07/24 Height: 5 ft 1 in Weight: 70.3 kg Body Mass Index (BMI): 29.2 Surgical Procedure: Operation Date: 10/07/24 07:35 Proposed Procedure Side Surgeon p Colonoscopy Anthony Chavez MD Actual Procedure Side Surgeon p Colonoscopy Not Applicable Anthony Chavez MD Pre-Op Diagnosis Post-Op Diagnosis Screening colonoscopy Meds Allergies and Home Medications Allergies Allergy/AdvReac Type Severity Reaction Status Date / Time No Known Allergies Allergy Unverified 10/07/24 06:47 Home Medication ?Medication ?Instructions ?Recorded aspirin 81 mg chewable tablet 81 mg PO DAILY 08/01/24 atorvastatin 20 mg tablet 20 mg PO QHS 08/01/24 calcium 500 mg (as 1 tab PO DAILY 08/01/24 carbonate)-vitamin D3 5 mcg (200 unit) tablet (Oyster Shell Calcium-Vitamin D3) cetirizine 10 mg tablet 10 mg PO DAILY PRN 08/01/24 cyclobenzaprine 10 mg tablet 10 mg PO HS PRN 08/01/24 diphenhydramine HCl 25 mg capsule 25 mg PO QHS PRN 08/01/24 (NightTime Sleep Aid (diphenhydramine)) empagliflozin 25 mg tablet 25 mg PO DAILY 08/01/24 (Jardiance) melatonin 10 mg capsule 10 mg PO HS PRN 08/01/24 semaglutide 2 mg/dose (8 mg/3 mL) 2 mg subcut QWEEK 08/01/24 subcutaneous pen injector (Ozempic) sertraline 100 mg tablet 100 mg PO DAILY 08/01/24 valsartan 320 1 tab PO DAILY 08/01/24 mg-hydrochlorothiazide 25 mg tablet vitamin E (dl, acetate) 45 mg (100 45 mg PO DAILY 08/01/24 unit) capsule Current Visit Medications: Current Medications Generic Name Dose Route Start Last Admin Trade Name Freq PRN Reason Stop Dose Admin Ringer's Solution 1,000 mls @ 80 mls/hr 10/07/24 06:00 10/07/24 07:03 IV 10/07/24 23:59 80 mls/hr INFUSION ASHLEIGH Administration IV Miscellaneous Supplies 1 each 10/07/24 06:00 Iv Access IV 10/07/24 23:59 DIRECTED ASHLEIGH Ondansetron HCl 4 mg 10/06/24 16:06 Ondansetron 4 Mg/2 Ml Vial IVP 11/05/24 16:05 Q4H PRN PRN Nausea / Vomiting Sodium Chloride 0 ml 10/07/24 06:00 Normal Saline Flush 10 Ml Syr IV 10/07/24 23:59 PRN PRN Sodium Chloride 0 ml 10/07/24 06:00 Normal Saline 10 Ml Vial IJ 10/07/24 23:59 DIRECTED PRN Sterile Water 0 ml 10/07/24 06:00 Water,Injection,Sterile 10 Ml Vial IJ 10/07/24 23:59 DIRECTED PRN PFSH Active Problems Active Problems: Problem Status Onset Code Encounter for screening colonoscopy Acute Z12.11 Medical History Medical History Metabolic syndrome X Uterine leiomyoma Obstructive sleep apnea syndrome Postmenopausal bleeding Age-related nuclear cataract, bilateral Hypercalcemia Allergic rhinitis Essential hypertension Cyst of Bartholin's gland duct Hyperlipidemia History of colonic polyps Obesity Presbyopia Hypermetropia Vitreous degeneration of both eyes Regular astigmatism of right eye Syncope and collapse Chest pain Proteinuria Menopause present GERD with apnea without esophagitis Fibromyalgia Obstructive sleep apnea of adult Acne vulgaris Strain of neck muscle Paresthesia of tongue Malaise and fatigue Alopecia Menopausal flushing Constipation Caregiver stress syndrome Mixed anxiety and depressive disorder Anxiety Type 2 diabetes mellitus Surgical History Surgical History History of surgery Implant Inspire implant for JOHN History of colonoscopy S/P tubal ligation (~1991) H/O removal of cyst cyst removal at [facility] 2016 History of nasal septoplasty s/p septoplasty for JOHN 08/23/2010 Tobacco Smoking/Tobacco Use Status: Current-Occasional Alcohol Alcohol Intake: current Alcohol intake frequency: a few times a week Substance Use Substance use: Daily Substance use type: marijuana Details: Evenings last smoked marijuana 10/04/24. Vital Signs and Lab Results Vital Signs Most Recent Vital Signs in EMR: Most Recent Vital Signs Temp Pulse Resp BP Pulse Ox 36.4 C L 74 20 172/78 H 100 10/07/24 06:40 10/07/24 06:40 10/07/24 06:40 10/07/24 06:40 10/07/24 06:40 Point of Care Results Point of Care Results: Finger Stick Blood Glucose 95 10/07/24 06:52 Lab Results Blood Type / Crossmatch: No Data to Display Complete Blood Count: No Data to Display Complete Metabolic Panel: No Data to Display Liver Function Panel: No Data to Display Coagulation Panel: No Data to Display Cardiac Panel: No Data to Display Arterial Blood Gas: No Data to Display Venous Blood Gas: No Data to Display Pancreas Panel: No Data to Display Thyroid Panel: No Data to Display Infectious Disease: No Data to Display Blood Cultures: No Data to Display Toxicology Panel: No Data to Display Anesthesia Assessment and Plan Anesthesia History Personal History: No History of Anesthesia Complications Family History: No Family History of Anesthesia Complications and Other Exercise Tolerance Exercise Tolerance: Metabolic Equivalents>4 Pertinent Negatives Pertinent Negatives: No Symptoms of GERD Cardiac & Pulmonary Exam Cardiac Exam: Normal S1/S2 Heart Sounds Pulmonary Exam: Clear Bilateral Breath Sounds Implantable Cardiac Device Does patient have a Pacemaker or an ICD?: No Airway Exam Known Difficult Airway: No Mallampati Class: 2 Mouth Opening: Normal (> 3cm) Thyromental Distance: Greater than 3 cm Neck Range of Motion: Full ROM Neck Circumference: Normal Teeth Condition: Normal Dentition ASA Classification ASA Score: ASA 3 Emergency Case?: No NPO Status NPO Status: NPO Clears >2 hours, Solids >8 hours Anesthesia Plan Resuscitation Status: Full Code Anesthesia Technique: General Anesthesia Airway Planned: Natural Airway Monitors Used: Standard Monitors
[2024-10-07 07:20] VITALS: BMI 29.2
--- NOTE | 2024-10-07 07:55 | BOWEL_PTH ---
PATIENT: Zahra Yu LOC: [facility] U#:[id number] AGE/SX: 59/F ROOM: RE10/07/[address]: Anthony Chavez MD : 1965 BED: DIS: 10/07/2024 SPEC #: [id number] RECD: 10/07/24 12:16 STATUS: MELISSA REQ #: [id number] LEE: 10/07/24 07:[address]: Anthony Chavez DEPT: Surgical Specimen RECD BY: Verito Anne ENTERED: 10/07/24 12:16 SP TYPE: Bowel OTHR DR: Jana Fontenot Tissues: 1 - BIOPSY BOWEL Procedures: GROSS AND MICRO LEVEL 4 Comments: [id number]
[2024-10-07 08:00] VITALS: BP 125/56; PULSE 70; RESP 20; TEMP 36.3; O2SAT 96
--- NOTE | 2024-10-07 08:16 | W.ANESPOSTOP ---
Postoperative Evaluation Date, Time and Location Date Performed: 10/07/24 Time Performed: 08:17 Patient Location: Day Surgery Unit Vital Signs Most Recent Imported Vital Signs: Most Recent Vital Signs Temp Pulse Resp BP Pulse Ox 36.3 C L 70 20 125/56 L 96 10/07/24 08:00 10/07/24 08:00 10/07/24 08:00 10/07/24 08:00 10/07/24 08:00 Pain Score Most Recent Pain Score: Most Recent Pain Score Pain Level 0 10/07/24 08:00 Assessment Mental Status: Awake (Alert & Oriented to Patient Baseline) Airway and Respiratory Function: Patent airway with normal (patient baseline) respiratory exam Cardiovascular Function: Hemodynamically Stable Hydration Status: Adequately Hydrated Nausea & Vomiting: No Nausea or Vomiting Pain: Pt. Denies Any Pain Peripheral Nerve Block: Patient did not receive a nerve block
[2024-10-07 08:27] VITALS: BP 139/64; PULSE 83; RESP 20; TEMP 36.4; O2SAT 100
== END 2024-10-07 08:47 | disposition home or self-care (01) ==
LOC: SUR 06:33
PROVIDERS: PCP Family Medicine; Visit Provider Surgery
PROC: 0DJD8ZZ Inspection of Lower Intestinal Tract, Via Natural or Artificial Opening Endoscopic (ICD-10-PCS; CPT 45378; principal; 2024-10-07 07:30)
DX: Z12.11 Encounter for screening for malignant neoplasm of colon (principal); K63.5 Polyp of colon
CPT/HCPCS: 45380; 88305; J2003; J2704

== ENCOUNTER 2024-10-28 15:12 | Outpatient (REF) | payer MEDICAID, SELFPAY ==
--- NOTE | 2024-10-28 13:50 | PAPFT_PTH ---
PATIENT: Zahra Yu LOC: [facility]#:[id number] AGE/SX: 59/F ROOM: RE10/28/[address]: Jana Fontenot : 1965 BED: DIS: 10/28/2024 SPEC #: [id number] RECD: 10/31/24 13:22 STATUS: MELISSA REArpit #: [id number] LEE: 10/28/24 13:[address]: Jana Fontenot DEPT: [facility] Cytology RECD BY: Verito Anne Tissues: 1 - CX/ENDOCX FOR PAP SMEARS Procedures: PAP THIN PREP/UVM Screening HPV DNA PROBE Comments: [id number] (HPV 16 & 18/45)
[2024-10-28 21:28] LABS: Hemoglobin A1C 5.7 % (<5.7)
[2024-10-28 21:37] LABS: Anion Gap 10.3 mmol/L (3-11); BUN 14 mg/dL (7-18); CO2 29.7 mmol/L (21.0-32.0); Calcium 10.1 mg/dL (8.5-10.1); Calculated LDL 64 mg/dL (<100); Chloride 100 mmol/L (98-107); Cholesterol 140 mg/dL (<200); Glucose 90 mg/dL (74-106); HDL Cholesterol 50 mg/dL (>or=50); Potassium 3.5 mmol/L (3.5-5.1); Sodium 140 mmol/L (136-145); Triglyceride 134 mg/dL (<150)
== END 2024-10-28 15:13 | disposition home or self-care (01) ==
LOC: NCHCN 15:12
PROVIDERS: PCP Family Medicine; Visit Provider Family Medicine
DX: Z12.4 Encounter for screening for malignant neoplasm of cervix (principal); E11.8 Type 2 diabetes mellitus with unspecified complications; I10 Essential (primary) hypertension; E78.5 Hyperlipidemia, unspecified
CPT/HCPCS: 80048; 80061; 88142; 83036; 87624

== ENCOUNTER 2024-12-05 21:23 | Outpatient (REF) | payer MEDICAID, SELFPAY ==
[2024-12-05 22:29] LABS: Anion Gap 7.9 mmol/L (3-11); BUN 16 mg/dL (7-18); CO2 32.1 mmol/L (21.0-32.0); Calcium 10.3 mg/dL (8.5-10.1); Chloride 100 mmol/L (98-107); Estimated GFR 74.10 (mL/min/1.73m2); Glucose 86 mg/dL (74-106); Potassium 3.6 mmol/L (3.5-5.1); Sodium 140 mmol/L (136-145)
== END 2024-12-05 21:24 | disposition home or self-care (01) ==
LOC: NCHCN 21:23
PROVIDERS: PCP Family Medicine; Visit Provider Family Medicine
DX: Z51.81 Encounter for therapeutic drug level monitoring (principal)
CPT/HCPCS: 80048

== ENCOUNTER 2024-12-07 02:24 | Outpatient (CLI) | payer MEDICAID, SELFPAY ==
--- NOTE | 2024-12-07 15:56 | DI.MAMMO_ITS ---
Exam(s) MG MAMMO SCREENING EXAM: MG MAMMO SCREENING CLINICAL HISTORY: SCREENING, Z12.31 TECHNIQUE: Mammograms were interpreted according to the usual protocol including computer analysis with CAD system, tomosynthesis and C-view imaging. COMPARISON: MG MM DIGITAL SCR W PREM BILATERAL from 03/07/2020 US US BREAST LIMITED from 03/21/2020 MG MM DIGITAL DIAG RT W PREM UNILAT W ASSOC CHG from 03/21/2020 MG MA BREAST SCREENING PREM BILATERAL from 06/04/2021 MG MA BREAST SCREENING PREM BILATERAL from 06/10/2022 MG MA BREAST SCREENING PREM BILATERAL from 06/30/2023 FINDINGS: The breasts are composed of scattered fibroglandular densities, Breast Density category B. No suspicious masses or suspicious microcalcifications are seen. Are stable benign calcifications in the posterior upper inner quadrant of the right breast as well as scattered through both breasts. Biopsy marker clip again noted in the right breast. No skin thickening or abnormal axillary lymph nodes are seen. There has been no significant change from prior exams. IMPRESSION: BI-RADS Category 2 - Benign Findings Yearly screening mammography is recommended. Breast Density - Category B - There are scattered areas of fibroglandular density. Breast density Category C or D implies that the patient has dense breast tissue. Dense breast tissue can make it harder to find cancer on a mammogram. Dense breast tissue is also associated with an increased risk of breast cancer. This information about the result of the mammogram report was provided to the patient to raise their awareness. Use this report when you speak with the patient about their risks for breast cancer, which includes their family history. At that time, you may recommend additional screening tests (Ultrasound or MRI) as these tests may add significant information. A negative radiographic report should not delay biopsy if a dominant or clinically suspicious mass is present. Up to ten percent of cancers are not identified on mammography. A negative report may reinforce clinical impression. Adenosis and dense breasts may obscure an underlying neoplasm. False positive reports average 6 to 10%. Patient will receive a letter notifying them of these results.
== END 2024-12-07 02:44 ==
LOC: DI 02:24
PROVIDERS: PCP Family Medicine; Visit Provider Family Medicine
DX: Z12.31 Encounter for screening mammogram for malignant neoplasm of breast (principal); R92.323 Mammographic fibroglandular density, bilateral breasts
CPT/HCPCS: 77063; 77067